=== PATIENT | female | born 1975 | race African-American/Black ===

== ENCOUNTER 2019-05-02 21:00 | Emergency (ER) | payer OTHER ==
[~2019-05-02] VITALS: Ht 165.1 cm; Wt 95.3 kg
[~2019-05-02 21:00] MED LIST: ACETAMINOPHEN-1 EAC1 PO; AMOXICILLIN875 MG PO; AZITHROMYCIN 2250 MG PO; CELEXA40 MG PO; CIPROFLOXACIN500 M1 PO; DOXYCYCLINE 10100 MG PO; ERYTHROMYCIN E3.5 G1 OP; FLEXERIL PO; HYDROCODONE-AC120 ML PO; MEDROLDOSEPACK PO; NAPROSYN500 MG; NAPROSYN500 MG PO; NOHOMEMEDICATIONS; NORCO 5-325 TA1 EACH PO; NORFLEX100 MG PO; PENICILLIN VK500 M1 PO; PREDNISONE 20 M20 M1; PROAIR HFA8.5 GM IH; TRAMADOL 50 MG50 MG PO; ULTRAM 50MG TAB50 MG PO; VICODIN 5-5001 EACH PO
[2019-05-03] MEDS ORDERED: BACTRIM DS TAB1 EACH PO (00:07)
[2019-05-03] MEDS ORDERED: MOBIC15 MG PO (00:07)
[2019-05-03 00:27] VITALS: BP 135/84
== END 2019-05-03 00:28 | disposition home or self-care (01) ==
LOC: ER 21:00
DX: L02.412 Cutaneous abscess of left axilla (principal); L02.415 Cutaneous abscess of right lower limb; F17.210 Nicotine dependence, cigarettes, uncomplicated

== ENCOUNTER 2019-08-05 00:43 | Emergency (ER) | payer OTHER ==
[~2019-08-05] VITALS: Ht 165.1 cm; Wt 99.8 kg
[~2019-08-05 00:43] MED LIST changes: +BACTRIM DS TAB1 EACH PO; +MOBIC15 MG PO
[2019-08-05 01:34] LABS: URINE BILIRUBIN NEGATIVE (Negative); URINE BLOOD NEGATIVE (Negative); URINE CLARITY SL CLOUDY; URINE COLOR YELLOW; URINE GLUCOSE-RANDOM* NEGATIVE (Negative); URINE KETONES NEGATIVE (Negative); URINE LEUKOCYTES-REFLEX NEGATIVE (Negative); URINE NITRITE-REFLEX NEGATIVE (Negative); URINE PROTEIN (DIPSTICK) NEGATIVE (Negative); URINE SPECIFIC GRAVITY >= 1.030 (1.005-1.035); URINE UROBILINOGEN 0.2 E.U./dl (0.2-1.0)
[2019-08-05] MEDS ORDERED: PYRIDIUM200 MG PO (02:14)
[2019-08-05] MEDS ORDERED: FLEXERIL PO (02:14)
[2019-08-05] MEDS ORDERED: IBUPROFEN 600600 M1 PO (02:14)
[2019-08-05 02:17] VITALS: BP 145/81
== END 2019-08-05 02:17 | disposition home or self-care (01) ==
LOC: ER 00:43
PROVIDERS: Emergency Medicine Emergency Medical Services
DX: M54.5 Low back pain (principal); R10.30 Lower abdominal pain, unspecified; F17.210 Nicotine dependence, cigarettes, uncomplicated; Z98.51 Tubal ligation status

== ENCOUNTER 2019-09-08 11:13 | Emergency (ER) | payer OTHER ==
[~2019-09-08] VITALS: Ht 165.1 cm; Wt 81.7 kg
[~2019-09-08 11:13] MED LIST changes: +IBUPROFEN 600600 M1 PO; +PYRIDIUM200 MG PO
[2019-09-08] MEDS ORDERED: ERYTHROMYCIN E3.5 G3 OPHTHALMIC (11:48)
[2019-09-08] MEDS ORDERED: AUGMENTIN 875-1 EACH PO (11:48)
[2019-09-08 12:15] VITALS: BP 164/95
== END 2019-09-08 12:15 | disposition home or self-care (01) ==
LOC: ER 11:13
DX: H04.302 Unspecified dacryocystitis of left lacrimal passage (principal); F17.210 Nicotine dependence, cigarettes, uncomplicated; Z88.7 Allergy status to serum and vaccine

== ENCOUNTER 2019-10-18 22:37 | Emergency (ER) | payer OTHER ==
[~2019-10-18] VITALS: Ht 165.1 cm; Wt 81.7 kg
[~2019-10-18 22:37] MED LIST changes: +AUGMENTIN 875-1 EACH PO; +ERYTHROMYCIN E3.5 G3 OPHTHALMIC
[2019-10-18] MEDS ORDERED: MUPIROCIN15 GM TOP (23:10)
[2019-10-18 23:28] VITALS: BP 128/78
== END 2019-10-18 23:20 | disposition home or self-care (01) ==
LOC: ER 22:37
DX: S31.819A Unspecified open wound of right buttock, initial encounter (principal); F17.210 Nicotine dependence, cigarettes, uncomplicated; Z98.51 Tubal ligation status; X58.XXXA Exposure to other specified factors, initial encounter; Y93.89 Activity, other specified; Y92.89 Other specified places as the place of occurrence of the external cause; Y99.8 Other external cause status

== ENCOUNTER 2021-04-25 11:31 | Emergency (ER) | payer OTHER ==
[~2021-04-25] VITALS: Ht 165.1 cm; Wt 99.8 kg
[2021-04-25 11:31] VITALS: BP 172/109
[~2021-04-25 11:31] MED LIST changes: +MUPIROCIN15 GM TOP
[2021-04-25] MEDS ORDERED: MEDROLDOSEPACK PO (11:57)
[2021-04-25] MEDS ORDERED: MOBIC7.5 MG PO (11:57)
[2021-04-25] MEDS ORDERED: ZANAFLEX4 MG PO (11:57)
== END 2021-04-25 12:00 | disposition home or self-care (01) ==
LOC: ER 11:31
DX: M54.42 Lumbago with sciatica, left side (principal); F17.210 Nicotine dependence, cigarettes, uncomplicated; Z79.899 Other long term (current) drug therapy; Z79.891 Long term (current) use of opiate analgesic

== ENCOUNTER 2021-07-13 14:44 | Emergency (ER) | payer OTHER ==
[~2021-07-13] VITALS: Ht 165.1 cm; Wt 99.8 kg
[~2021-07-13 14:44] MED LIST changes: +MOBIC7.5 MG PO; +ZANAFLEX4 MG PO
[2021-07-13 15:11] VITALS: BP 140/84
[2021-07-13] MEDS ORDERED: CEPHALEXIN500 MG PO (16:46)
[2021-07-13] MEDS ORDERED: PREDNISONE 10 M10 MG PO (16:46)
[2021-07-13] MEDS ORDERED: TRIMETHOPRIM /P10 M1 EA. EYE (16:46)
== END 2021-07-13 17:11 | disposition home or self-care (01) ==
LOC: ER 14:44
DX: L02.01 Cutaneous abscess of face (principal); H00.016 Hordeolum externum left eye, unspecified eyelid; F17.210 Nicotine dependence, cigarettes, uncomplicated; Z98.51 Tubal ligation status

== ENCOUNTER 2021-07-16 16:36 | Emergency (ER) | payer OTHER ==
[~2021-07-16] VITALS: Ht 165.1 cm; Wt 104.3 kg
[~2021-07-16 16:36] MED LIST changes: +CEPHALEXIN500 MG PO; +PREDNISONE 10 M10 MG PO; +TRIMETHOPRIM /P10 M1 EA. EYE
[2021-07-16] MEDS ORDERED: BACTRIM DS TAB1 EACH PO ×2 (19:12→19:15)
[2021-07-16] MEDS ORDERED: CEPHALEXIN500 MG PO (19:12)
[2021-07-16] MEDS ORDERED: NORCO5 PO (19:13)
[2021-07-16 19:48] VITALS: BP 141/84
== END 2021-07-16 19:49 | disposition home or self-care (01) ==
LOC: ER 16:36
DX: H05.012 Cellulitis of left orbit (principal); F17.210 Nicotine dependence, cigarettes, uncomplicated; Z98.51 Tubal ligation status; Z98.890 Other specified postprocedural states; Z79.899 Other long term (current) drug therapy